=== PATIENT | male | born 1970 | race Caucasian/White ===

== ENCOUNTER 2017-10-07 19:22 | Emergency (ER) | payer OTHER ==
[2017-10-07] MEDS: ALPRAZOLAM 0.25 MG TAB PO (19:51)
== END 2017-10-07 20:59 | disposition home or self-care (01) ==
LOC: E/R 19:22
DX: F41.9 Anxiety disorder, unspecified (principal)
CPT/HCPCS: 71045; 93005; 99284-25

== ENCOUNTER 2018-03-06 04:11 | Emergency (ER) | payer OTHER ==
[2018-03-06] MEDS: KETOROLAC 60 MG INJ IM (04:45)
== END 2018-03-06 05:07 | disposition home or self-care (01) ==
LOC: FTE 04:11
DX: M25.511 Pain in right shoulder (principal)
CPT/HCPCS: 96372; 99284-25

== ENCOUNTER 2018-08-19 13:40 | Emergency (ER) | payer OTHER ==
[2018-08-19] MEDS: DIAZEPAM 5 MG TAB PO (14:46)
[2018-08-19] MEDS: DEXAMETHASONE 10 MG/ML 1 ML INJ IM (14:46)
[2018-08-19] MEDS: KETOROLAC 60 MG INJ IM (14:46)
== END 2018-08-19 15:55 | disposition home or self-care (01) ==
LOC: FTE 13:40
DX: M25.552 Pain in left hip (principal)
CPT/HCPCS: 72100; 73510; 96372; 99284-25